=== PATIENT | male | born 1985 | race Two or more races ===

== ENCOUNTER 2024-07-13 08:55 | Day surgery (SDC) | payer MEDICAID, SELFPAY ==
[2024-07-11 09:53] LABS: Basophils # (Auto) 0.1 Thou/mm3 (0.0-0.2); Basophils % (Auto) 1 % (0-2.5); Eosinophils # (Auto) 0.2 Thou/mm3 (0.0-0.5); Eosinophils % (Auto) 3 % (0-10); Hematocrit 47.1 % (41.0-53.0); Hemoglobin 16.4 g/dL (13.5-16.0); Immature Granulocytes % (Auto) 1 % (0-0); Immature Granulocytes Auto 0.05 Thou/mm3 (0.00-0.00); Lymphocytes # (Auto) 2.4 Thou/mm3 (1.0-4.8); Lymphocytes % (Auto) 35 % (10-50); Mean Corpuscular HGB Conc 34.8 g/dl (31.0-37.0); Mean Corpuscular Hemoglobin 30.5 pg (25.0-35.0); Mean Corpuscular Volume 88 fL (80-100); Monocytes # (Auto) 0.6 Thou/mm3 (0.0-0.8); Monocytes % (Auto) 9 % (0-12); Neutrophils # (Auto) 3.6 Thou/mm3 (1.8-7.7); Neutrophils % (Auto) 52 % (37-80); Nucleated Red Blood Cell % 0 /100 WBC (0); Platelet Count 300 Thou/mm3 (140-440); RDW Standard Deviation 43.1 fL (35.1-43.9); Red Blood Count 5.38 Miln/mm3 (4.50-5.90); White Blood Count 6.9 Thou/mm3 (3.8-10.6)
[2024-07-11 10:01] LABS: Anion Gap 7 (7-16); BUN/Creatinine Ratio 8 Ratio (12-20); Blood Urea Nitrogen 9 mg/dL (9-23); Calcium 9.8 mg/dL (8.3-10.6); Carbon Dioxide 27.9 mMol/L (20.0-31.0); Chloride 103 mMol/L (98-107); Creatinine (Component) 1.1 mg/dL (0.6-1.3); Glucose 108 mg/dL (74-106); Osmolality,Calculated 275 (275-295); Potassium 4.5 mMol/L (3.4-5.1); Sodium 138 mMol/L (136-145); eGFR > 60 See Note
[2024-07-11 10:09] LABS: Prothrombin Time 10.8 Seconds (9.0-12.2)
--- NOTE | 2024-07-12 14:11 | SUR.PREOP ---
Pt resides at [facility], Jaye from [facility] will bring pt for surgery tomorrow, Jaye was notified to bring pt at 0900. Jaye stated no need to call pt, she will communicate with him.
[2024-07-13] VITALS (8 sets, daily range): BP systolic 132–164; BP diastolic 83–101; PULSE 64–76; RESP 13–20; TEMP 36.3–36.9; O2SAT 94–97; BMI 34.1
--- NOTE | 2024-07-13 11:03 | SUR.PHASEI ---
1103: Pt. AAOx4, vitals stable, breathing unlabored, no complaint of pain or nausea, dressing to ABD CDI, no active bleed noted, report received from Morgan GAUTHIER and Pacheco GARCIA.
--- NOTE | 2024-07-13 11:10 | ESOP_ITS ---
Date of Procedure 07/13/24 Pre Op Diagnosis Incarcerated umbilical hernia Post Op Diagnosis Incarcerated umbilical hernia Procedure Primary repair of incarcerated umbilical hernia Findings An approximately 8 mm umbilical hernia defect with incarcerated preperitoneal fat Procedure Description Patient brought into the operating room and spine position. After administration of general endotracheal anesthesia, patient's abdomen prepped and draped in standard surgical manner. Local anesthesia was administered. 3 cm semicircular incision was made above the umbilicus and dissection was deepened into soft tissue. The umbilicus was detached from anterior abdominal fascia. The hernia sac was identified and circumferentially dissected out surrounding tissue. The sac was opened and the contents of incarcerated preperitoneal fat. The hernia sac along with incarcerated preperitoneal fat were excised. The defect was approximately 8 mm in diameter. The defect was primarily closed with simple interrupted sutures using 0 Prolene. The umbilicus was reattached into anterior abdominal fascia. Soft tissue reapproximated with interrupted sutures using 2-0 Vicryl and the incision was closed with 4-0 Monocryl in subcuticular fashion. Dermabond applied. Patient tolerated the procedure well. He was extubated, breathing spontaneously and without difficulty and was transferred to postanesthesia care in stable condition. Instruments, needles and sponge counts were reported to be correct x 2. Anesthesia GETA and local Pathology / specimen None Estimated Blood Loss 2 Condition Stable Disposition PACU Surgeon Nikole Malave MD Surgical Staff Operation Date: 07/13/24 11:45 Case Staff FIRST ASSISTANT: Morgan Cornelius RNcage unloader: Carin Burk
[2024-07-13] MEDS: fentaNYL CIT INJ 50 mCg/ML AMP 2ML IV (11:28)
[2024-07-13] MEDS: KETOROLAC INJ 30 MG/ML VIAL IVP (11:35)
--- NOTE | 2024-07-13 12:05 | SUR.PHASEII ---
1205: Pt. AAOx4, vitals stable, breathing unlabored, no complaint of pain or nausea, dressing to ABD CDI, no active bleed noted, ABD Binder in place, pt. tolerated sips of water well, pt. ambulated to wheelchair with steady gait and no assist, no complications. Gave discharge instructions to the pt. and his ride, both verbalized understanding and had no further questions.
== END 2024-07-13 12:05 | disposition home or self-care (01) ==
PROVIDERS: PCP Family Medicine; Referring Provider Surgery; Visit Provider Surgery
PROC: (CPT 49592; principal; 2024-07-13 11:30)
DX: K42.0 Umbilical hernia with obstruction, without gangrene (principal)
CPT/HCPCS: 49592; 36415; 80048; 85025; 85610; A4217; A4649; J0131; J1100; J1885; J2405; J2704; J3010; J3490